=== PATIENT | female | born 1995 | race Caucasian/White ===

== ENCOUNTER 2020-08-14 02:24 | Emergency (ER) | payer OTHER ==
[~2020-08-14] VITALS: Ht 160 cm; Wt 107.9 kg
[2020-08-14 03:27] VITALS: BP 161/100
[2020-08-14] MEDS ORDERED: LIDOCAINE 1% MDV 20ML VIAL INFIL PRN (03:40)
[2020-08-14] MEDS ORDERED: OXYTOCIN DRIP 30 UNITS in IV 1 EA IV PRN (03:40)
[2020-08-14] MEDS ORDERED: PRENTAB9 PO (08:23)
--- NOTE | 2020-08-15 10:55 | ECGEPIP ---
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
== END 2020-08-14 03:27 | disposition admitted as inpatient to this hospital (09) ==
LOC: M ED 02:24
DX: O26.893 Other specified pregnancy related conditions, third trimester (principal); O99.513 Diseases of the respiratory system complicating pregnancy, third trimester; Z3A.39 39 weeks gestation of pregnancy; Z79.899 Other long term (current) drug therapy; Z91.018 Allergy to other foods

== ENCOUNTER 2020-08-14 03:34 | Inpatient (IN) | payer OTHER ==
[2020-08-14] VITALS (77 sets, daily range): BP systolic 96–184; BP diastolic 55–98
[~2020-08-14] VITALS: Ht 160 cm; Wt 107.2 kg
[2020-08-14] MEDS ORDERED: GI COCKTAIL 50ML BTL(HYOSCYAMINE/MAALOX/LIDOCAINE VISCOUS)(1:3:1) PO ONE (04:05)
--- NOTE | 2020-08-14 04:18 | IPNPDOC ---
Obstetrical Progress Note Date of Service Aug 14, 2020 AUDREY HENRY DO Aug 14, 2020 04:18
[2020-08-14 04:56] LABS: HEMATOCRIT 41.2 % (36.0-47.0); HEMOGLOBIN 13.7 g/dl (12.0-15.5); MEAN CORPUSCULAR HEMOGLOBIN 29.9 pg (27.0-33.0); MEAN CORPUSCULAR HGB CONC 33.3 g/dl (32.0-36.5); PLATELET COUNT, AUTOMATED 233 10^3/uL (150-450); RED BLOOD COUNT 4.58 10^6/uL (4.00-5.40)
[2020-08-14 05:26] LABS: ALBUMIN 2.8 GM/DL (3.2-5.2); ALT/SGPT 116 U/L (12-78); BILIRUBIN,TOTAL 0.3 MG/DL (0.2-1.0); BLOOD UREA NITROGEN 10 MG/DL (7-18); CALCIUM LEVEL 8.8 MG/DL (8.5-10.1); CARBON DIOXIDE LEVEL 25 MEQ/L (21-32); CHLORIDE LEVEL 109 MEQ/L (98-107); CREATININE FOR GFR 0.74 MG/DL (0.55-1.30); GLOMERULAR FILTRATION RATE > 60.0 (>60); GLUCOSE, FASTING 96 MG/DL (70-100); LDH LACTATE DEHYDROGENASE 393 U/L (84-246); NT-PRO BNP 10 PG/ML (<125); POTASSIUM SERUM 4.4 MEQ/L (3.5-5.1); SODIUM LEVEL 141 MEQ/L (136-145); TOTAL PROTEIN 6.8 GM/DL (6.4-8.2); TROPONIN I < 0.02 NG/ML (< 0.10)
[2020-08-14 06:31] LABS: AMPHETAMINES URINE REFLEX NEGATIVE (NEGATIVE); BARBITURATES URINE REFLEX NEGATIVE (NEGATIVE); BENZODIAZEPINES URINE REFLEX NEGATIVE (NEGATIVE); CANNABINOIDS URINE REFLEX NEGATIVE (NEGATIVE); COCAINE METABOLITE URINE REFLE NEGATIVE (NEGATIVE); METHADONE URINE REFLEX NEGATIVE (NEGATIVE); OPIATES URINE REFLEX NEGATIVE (NEGATIVE); PHENCYCLIDINE URINE REFLEX NEGATIVE (NEGATIVE)
[2020-08-14] MEDS ORDERED: OXYTOCIN INJ 10 UNITS/ML VIAL (J2590) IV PRN (07:20)
[2020-08-14] MEDS ORDERED: MAG Sulf (L&D) 4 GM/100 ML 4 GM in IV 1 EA IV ONE (07:20)
[2020-08-14] MEDS ORDERED: LIDOCAINE 1% MDV 20ML VIAL INFIL PRN ×2 (07:20→21:30)
[2020-08-14] MEDS ORDERED: CALCIUM GLUCONATE 1,000 MG in D5W MINI-BAG PLUS 100 ML IV PRN (07:20)
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
[2020-08-14] MEDS ORDERED: PRENTAB9 PO (08:23)
[2020-08-14] MEDS: LR 1,000 ML IV SCH ×2 (09:24→15:22)
[2020-08-14] MEDS: MAG Sulf (OBGYN) 20GM/500ML 20,000 MG in IV 1 EA IV SCH ×2 (09:58→19:44)
--- NOTE | 2020-08-14 11:15 | IPNPDOC ---
Obstetrical Progress Note Date of Service Aug 14, 2020 Subjective 25 yo at 39w2d admitted for pre-eclampsia with severe features. She denies headache, chest pain, RUQ pain, and visual changes. She has no additional complaints at this time. Discussed plan of care for IOL, pre-eclampsia, and plan to start magnesium sulfate IV. We also discussed pain management options. All questions were answered. Objective Vital Signs Date Time Temp Pulse Resp B/P (MAP) Pulse Ox O2 Delivery O2 Flow Rate FiO2 08/14/20 10:00 83 18 132/60 (84) 98 Room Air 08/14/20 08:20 97.0 Cook catheter balloon was placed at 1052 with 80/80 infused into the vaginal and uterine balloons. 16F indwelling urinary tanner catheter was placed. Patient tolerated the procedure well. Assessment Heart Rate (FHR): 135 Variability: Moderate Accelerations: Present Decelerations: None Tocometer Contractions: Yes Frequency: regular (every 3-4 minutes) Sterile Vaginal Examination Dilation: 1cm Effacement (%): 50% Station: -3 Cervical Consistency: Firm Cervical Position: Posterior Postion/Presentation: Cephalic presentation Assessment and Plan Age: 25 : 1 Term: 0 Pre-term: 0 Abortions: 0 Livin EGA at Admission: 39 (+2) Weeks & Days 39w2d Status: Reassuring Group B Streptococcus: Negative Anticipate: Vaginal Delivery Additional Comments Plan to re-evaluate EFM in 2 hours and will consider adding cytotec vs pitocin Repeat PIH labs at 1400 PRINCESS DAILEY CNM Aug 14, 2020 11:15
[2020-08-14] MEDS ORDERED: miSOPROStol 50MCG 1/2 TABLET PO PRN (11:45)
[2020-08-14] MEDS ORDERED: BUTORPHANOL 2 MG/ML INJ (J0595) IV ONE (13:00)
[2020-08-14] MEDS ORDERED: PROMETHAZINE INJ 25 MG/ML VIAL (J2550) IV ONE (13:00)
[2020-08-14 14:33] LABS: HEMATOCRIT 36.8 % (36.0-47.0); HEMOGLOBIN 12.5 g/dl (12.0-15.5); MEAN CORPUSCULAR HEMOGLOBIN 30.1 pg (27.0-33.0); MEAN CORPUSCULAR VOLUME 88.7 fl (80.0-96.0); RED BLOOD COUNT 4.15 10^6/uL (4.00-5.40); WHITE BLOOD COUNT 15.7 10^3/uL (4.0-10.0)
[2020-08-14 14:36] LABS: PLATELET COUNT, AUTOMATED 113 10^3/uL (150-450)
[2020-08-14 15:04] LABS: ALT/SGPT 194 U/L (12-78); BILIRUBIN,TOTAL 0.8 MG/DL (0.2-1.0); CREATININE FOR GFR 0.56 MG/DL (0.55-1.30); GLOMERULAR FILTRATION RATE > 60.0 (>60); LDH LACTATE DEHYDROGENASE 691 U/L (84-246); URIC ACID 7.4 MG/DL (2.6-6.0)
[2020-08-14] MEDS ORDERED: FENTANYL 2MCG/ML ROPIVACAINE 0.2% IN 0.9% NACL 100ML IVBAG As Ordered ONE (15:20)
[2020-08-14] MEDS ORDERED: ePHEDrine SULFATE 25 MG/5 ML(5MG/ML) SYRINGE IV PRN (15:25)
[2020-08-14] MEDS ORDERED: OXYTOCIN DRIP 30 UNITS in IV 1 EA IV SCH ×3 (15:25→23:45)
[2020-08-14] MEDS ORDERED: TRANEXAMIC ACID INJection 1,000 MG in NS 100 ML IV PRN (15:25)
[2020-08-14] MEDS ORDERED: LACTATED RINGER'S 1000 ML IV PRN (15:25)
[2020-08-14] MEDS ORDERED: ONDANSETRON 4MG/2ML VIAL IV PRN ×2 (15:25→22:30)
[2020-08-14] MEDS ORDERED: diphenhydrAMINE 50MG/ML VIAL (J1200) IV PRN ×2 (15:25→22:30)
[2020-08-14] MEDS ORDERED: REFRIGERATOR IV KEYS XX PRN (15:25)
[2020-08-14] MEDS ORDERED: FENTANYL/ROPIVACAINE/NACL BAG 100 ML EPIDURAL SCH (15:25)
[2020-08-14] MEDS ORDERED: NALOXONE INJ 0.4MG/1ML VIAL (J2310 PER 1MG) IV PRN ×3 (15:25→22:30)
[2020-08-14] MEDS ORDERED: EPIDURAL/PCA KEYS XX PRN (15:25)
[2020-08-14] MEDS ORDERED: EPIDURAL COMMENT XX SCH (15:25)
[2020-08-14] MEDS ORDERED: METHYLERGONOVINE MALEATE 0.2 MG/ML VIAL (J2210) IM PRN ×2 (15:25→21:30)
--- NOTE | 2020-08-14 15:38 | IPNPDOC ---
Obstetrical Progress Note Date of Service Aug 14, 2020 Subjective 25 yo at 39w2d admitted for pre-eclampsia with severe features which has now developed into HELLP syndrome. She denies headache, chest pain, RUQ pain, and visual changes. Discussed patient status and reviewed labs with Dr. Wayne, who agrees with having anesthesia place epidural now, as platelets are currently 113 from 233 since this morning. Her LFTs have increased: AST: 154 to 289, ALT: 116 to 194, and LDH: 393 to 691. Cook balloon has been expelled spontaneously and she has SROM'd for clear fluid. Objective Vital Signs Date Time Temp Pulse Resp B/P (MAP) Pulse Ox O2 Delivery O2 Flow Rate FiO2 08/14/20 15:19 97.6 89 18 134/61 (85) Room Air 08/14/20 11:03 98 Assessment Heart Rate (FHR): 125 Variability: Moderate Accelerations: Present Decelerations: None Tocometer Contractions: Yes Frequency: other (every 2-3 minutes) Sterile Vaginal Examination Dilation: 6 cm Effacement (%): 60% Station: -3 Cervical Consistency: Soft Cervical Position: Posterior Postion/Presentation: Cephalic presentation Assessment and Plan Age: 25 : 1 Term: 0 Pre-term: 0 Abortions: 0 Livin EGA at Admission: 39 (+2) Weeks & Days 39w2d Status: Reassuring Group B Streptococcus: Negative Anticipate: Vaginal Delivery PRINCESS DAILEY CNM Aug 14, 2020 15:24
--- NOTE | 2020-08-14 18:56 | IPNPDOC ---
Text Note Date of Service The patient was seen on 08/14/20. NOTE Vital Signs Label Value Date Time Pulse 107 08/14/20 1601 Blood Pressure Assessment 100/61 (74) 08/14/20 1601 Source Automatic Cuff (NIBP) Pulse 106 08/14/20 1606 Blood Pressure Assessment 157/73 (101) 08/14/20 1606 Source Automatic Cuff (NIBP) Pulse 118 08/14/20 1611 Blood Pressure Assessment 165/74 (104) 08/14/20 1611 Source Automatic Cuff (NIBP) Pulse 109 08/14/20 1621 Blood Pressure Assessment 136/69 (91) 08/14/20 1621 Source Automatic Cuff (NIBP) Pulse 114 08/14/20 1627 Blood Pressure Assessment 151/82 (105) 08/14/20 1627 Source Automatic Cuff (NIBP) Pulse 111 08/14/20 1633 Blood Pressure Assessment 132/77 (95) 08/14/20 1633 Source Automatic Cuff (NIBP) Pulse 116 08/14/20 1637 Pulse 117 08/14/20 1642 Pulse 120 08/14/20 1653 Pulse 106 08/14/20 1647 Blood Pressure Assessment 138/72 (94) 08/14/20 1647 Source Automatic Cuff (NIBP) Blood Pressure Assessment 134/78 (96) 08/14/20 1642 Source Automatic Cuff (NIBP) Blood Pressure Assessment 130/93 (105) 08/14/20 1637 Source Automatic Cuff (NIBP) Blood Pressure Assessment 184/77 (112) 08/14/20 1653 Source Automatic Cuff (NIBP) Blood Pressure Assessment 164/81 (108) 08/14/20 1657 Source Automatic Cuff (NIBP) Pulse 121 08/14/20 1657 Pulse 109 08/14/20 1702 Respiratory Rate 20 bpm 08/14/20 1702 Blood Pressure Assessment 170/90 (116) 08/14/20 1702 Source Automatic Cuff (NIBP) Pulse 99 08/14/20 1713 Blood Pressure Assessment 123/68 (86) 08/14/20 1713 Source Automatic Cuff (NIBP) Blood Pressure Assessment 131/60 (83) 08/14/20 1718 Source Automatic Cuff (NIBP) Pulse 104 08/14/20 1718 Pulse 101 08/14/20 1721 Blood Pressure Assessment 121/59 (79) 08/14/20 1721 Source Automatic Cuff (NIBP) Pulse 96 08/14/20 1726 Blood Pressure Assessment 124/58 (80) 08/14/20 1726 Source Automatic Cuff (NIBP) Pulse 96 08/14/20 1731 Blood Pressure Assessment 121/57 (78) 08/14/20 1731 Source Automatic Cuff (NIBP) Pulse 96 08/14/20 1736 Respiratory Rate 16 bpm 08/14/20 1736 Blood Pressure Assessment 120/56 (77) 08/14/20 1736 Source Automatic Cuff (NIBP) Item Value Date Time Urine Random Creatinine 288.0 MG/DL 08/14/20 0556 Urine Random Total Protein 54.0 MG/DL H 08/14/20 0556 Item Value Date Time Sodium Level 141 MEQ/L 08/14/20 0442 Potassium Level 4.4 MEQ/L 08/14/20 0442 Chloride Level 109 MEQ/L H 08/14/20 0442 Carbon Dioxide Level 25 MEQ/L 08/14/20 0442 Anion Gap 7 MEQ/L L 08/14/20 0442 Blood Urea Nitrogen 10 MG/DL 08/14/20 0442 Creatinine 0.74 MG/DL 08/14/20 0442 Glomerular Filtration Rate > 60.0 08/14/20 0442 Fasting Glucose 96 MG/DL 08/14/20 0442 Uric Acid 7.0 MG/DL H 08/14/20 0442 Calcium Level 8.8 MG/DL 08/14/20 0442 Total Bilirubin 0.3 MG/DL 08/14/20 0442 Aspartate Amino Transf (AST/SGOT) 154 U/L H 08/14/20 0442 Alanine Aminotransferase (ALT/SGPT) 116 U/L H 08/14/20 0442 Alkaline Phosphatase 322 U/L H 08/14/20 0442 Lactate Dehydrogenase 393 U/L H 08/14/20 0442 Troponin I < 0.02 NG/ML 08/14/20 0442 TQ-Odq-H-Type Natriuretic Peptide 10 PG/ML 08/14/20 0442 Total Protein 6.8 GM/DL 08/14/20 0442 Albumin 2.8 GM/DL L 08/14/20 0442 Albumin/Globulin Ratio 0.7 L 08/14/20 0442 Thyroid Stimulating Hormone (TSH) 2.130 uIU/ML 08/14/20 0442 Creatinine 0.56 MG/DL 08/14/20 1422 Glomerular Filtration Rate > 60.0 08/14/20 1422 Uric Acid 7.4 MG/DL H 08/14/20 1422 Aspartate Amino Transf (AST/SGOT) 289 U/L H 08/14/20 1422 Alanine Aminotransferase (ALT/SGPT) 194 U/L H 08/14/20 1422 Lactate Dehydrogenase 691 U/L H 08/14/20 1422 Item Value Date Time White Blood Count 16.0 10^3/uL H 08/14/20 0442 Red Blood Count 4.58 10^6/uL 08/14/20 0442 Hemoglobin 13.7 g/dl 08/14/20 0442 Hematocrit 41.2 % 08/14/20 0442 Mean Corpuscular Volume 90.0 fl 08/14/20 0442 Mean Corpuscular Hemoglobin 29.9 pg 08/14/20 0442 Mean Corpuscular Hemoglobin Concent 33.3 g/dl 08/14/20 0442 Red Cell Distribution Width 14.2 % 08/14/20 0442 Platelet Count 233 10^3/uL 08/14/20 0442 White Blood Count 15.7 10^3/uL H 08/14/20 1422 Red Blood Count 4.15 10^6/uL 08/14/20 1422 Hemoglobin 12.5 g/dl 08/14/20 1422 Hematocrit 36.8 % 08/14/20 1422 Mean Corpuscular Volume 88.7 fl 08/14/20 1422 Mean Corpuscular Hemoglobin 30.1 pg 08/14/20 1422 Mean Corpuscular Hemoglobin Concent 34.0 g/dl 08/14/20 1422 Red Cell Distribution Width 14.3 % 08/14/20 1422 Platelet Count 113 10^3/uL L # 08/14/20 1422 08/14/2020 1600 pm REVIEW AND TAKE OVER CARE. OF PATIENT. 25 YO CAME TO ED FOR CHEST PAIN. EKG NORMAL. REVIEW WITH PATIENT WAS IN FACT EPIGASTRIC IN NATURE PATIENT HAS HISTORY OF GERD TAKES TUMS. PATIENT EVALUATED IN LABOR AT 39.2 WEE KS HAD ELEVATED LIVER ENZYMES BP 143/97 CATEGORY 1 STRIP BPP 8/8 PATIENT LIVER FUNCTIONS DOUBLED AND PLATELETS REDUCED BY 50%. DIAGNOSIS OF HELLP SYNDROME ATYPICAL. PLAN REVIEWED HELLP WITH PATIENT AND WITH DIFFERENTIAL DIAGNOSIS HYPERTENSIVE WITH PRE -E THROMBOCYTOPENIA ACUTE FATTY LIVER ACUTE KIDNEY DISEASE DIAGNOSIS ATYPICAL HELLP NO SEVERE BLOOD PRESSURES EDEMA +3 TO KNEES NORMAL REFLEXES NO RUQ PAIN NO PRE E SYMPTOMS. PLAN IOL ANTICIPATE OPTIMIZE FOR VAGINAL DELIVERY MONITOR FOR DIC PLANNED HEMORRHAGE CART IV PITOCIN METHERGINE CYTOTEC 1000MG TXA REVIEW AND MONITOR ENZYMES ALT AST ALK PHOPOTASE BILIRUBIN PT/PTT FIBRINOGEN FOR DIC TREAT CAUSE DELIVERY OPTIMUM VAGINAL, BLOOD PRODUCTS PPC, FFP, CPP TARGET 7 GM HG PTL 50,000 FIBRGEN 300 PT/PTT <1.5 SEC POST 24-72 HOURS PLATELETS INCREASE LIVER ENZYMES DECREASE DIURESIS THEREFORE GETTING BETTER . 1 HOUR WITH PATIENT VS,Fishbone, I+O VS, Fishbone, I+O Laboratory Tests 08/14/20 04:42 08/14/20 14:22 Vital Signs Date Time Temp Pulse Resp B/P (MAP) Pulse Ox O2 Delivery O2 Flow Rate FiO2 08/14/20 17:51 98.1 100 18 126/58 (80) 99 Room Air Jayy Wayne MD Aug 14, 2020 18:34
[2020-08-14] MEDS ORDERED: ACETAMINOPHEN 500 MG TAB PO ONE (19:25)
[2020-08-14 20:55] LABS: HEMATOCRIT 36.9 % (36.0-47.0); HEMOGLOBIN 12.4 g/dl (12.0-15.5); MEAN CORPUSCULAR HEMOGLOBIN 30.3 pg (27.0-33.0); MEAN CORPUSCULAR HGB CONC 33.6 g/dl (32.0-36.5); MEAN CORPUSCULAR VOLUME 90.2 fl (80.0-96.0); PLATELET COUNT, AUTOMATED 106 10^3/uL (150-450); RED BLOOD COUNT 4.09 10^6/uL (4.00-5.40); WHITE BLOOD COUNT 16.3 10^3/uL (4.0-10.0)
[2020-08-14 21:05] LABS: ALBUMIN 2.5 GM/DL (3.2-5.2); ALT/SGPT 158 U/L (12-78); BILIRUBIN,TOTAL 0.7 MG/DL (0.2-1.0); BLOOD UREA NITROGEN 9 MG/DL (7-18); CALCIUM LEVEL 6.8 MG/DL (8.5-10.1); CARBON DIOXIDE LEVEL 24 MEQ/L (21-32); CHLORIDE LEVEL 106 MEQ/L (98-107); CREATININE FOR GFR 0.66 MG/DL (0.55-1.30); GLOMERULAR FILTRATION RATE > 60.0 (>60); GLUCOSE, FASTING 93 MG/DL (70-100); MAGNESIUM LEVEL 5.9 MG/DL (1.8-2.4); SODIUM LEVEL 138 MEQ/L (136-145); TOTAL PROTEIN 5.7 GM/DL (6.4-8.2)
[2020-08-14 21:13] LABS: INR 0.93; PROTHROMBIN TIME 12.7 SECONDS (12.5-14.3)
[2020-08-14 21:14] LABS: PARTIAL THROMBOPLASTIN TIME 26.4 SECONDS (24.2-38.5)
[2020-08-14] MEDS ORDERED: LR 1,000 ML IV SCH (21:30)
[2020-08-14] MEDS ORDERED: BICITRA 30ML SOLN UDC PO ONE (21:30)
[2020-08-14] MEDS ORDERED: ACETAMINOPHEN 650 MG SUPP PR SCH (21:30)
[2020-08-14] MEDS ORDERED: ceFAZolin SOD 2 GM in IV 1 EA IV ONE (21:30)
[2020-08-14] MEDS ORDERED: AZITHROMYCIN INJ 500 MG, VIAL MATE ADAPTER 1 EACH in NS 250 ML IV ONE (21:30)
[2020-08-14] MEDS ORDERED: ceFAZolin 2 GM/D5W 50 ML IV BAG (J0690 PER 500MG) As Ordered ONE (21:31)
[2020-08-14] MEDS ORDERED: AZITHROMYCIN INJ 500MG VIAL (J0456 PER 500MG) As Ordered ONE (21:32)
[2020-08-14] MEDS ORDERED: BUPIVACAINE HCL 0.25% 30ML VIAL As Ordered ONE (21:37)
[2020-08-14] MEDS ORDERED: MORPHINE PRES-FREE INJ 10 MG/10 ML VIAL (J2274) As Ordered ONE (21:39)
[2020-08-14] MEDS ORDERED: LIDOCAINE 2% W/EPINEPHRINE 20ML VIAL **PRES FREE As Ordered ONE (21:40)
[2020-08-14] MEDS ORDERED: ONDANSETRON 4MG/2ML VIAL As Ordered ONE (21:40)
[2020-08-14] MEDS ORDERED: BUPIVACAINE HCL 0.25% 10ML VIAL As Ordered ONE (21:41)
[2020-08-14] MEDS ORDERED: OXYTOCIN 30 UNITS IN 0.9% NaCl 500ML IV BAG (J2590) As Ordered ONE (21:42)
[2020-08-14] MEDS ORDERED: METOCLOPRAMIDE INJ 10MG/2ML VIAL (J2765 PER 1) As Ordered ONE (22:20)
[2020-08-14] MEDS ORDERED: NALBUPHINE HCL 10 MG/ML AMP (J2300) IV PRN (22:30)
[2020-08-14] MEDS ORDERED: METOCLOPRAMIDE INJ 10MG/2ML VIAL (J2765 PER 1) IV PRN (22:30)
[2020-08-14 22:39] LABS: CORD GAS ABE A -1.5; CORD GAS HCO3 A 26.7 MEQ/L; CORD GAS HCO3 V 23.9 MEQ/L; CORD GAS O2 SAT A 23.4 %; CORD GAS O2 SAT V 53.3 %; CORD GAS PCO2 A 57.9 mmHg; CORD GAS PCO2 V 44.3 mmHg; CORD GAS PH A 7.281 UNITS; CORD GAS PH V 7.349 UNITS; CORD GAS PO2 A 13.7 mmHg; CORD GAS PO2 V 22.6 mmHg; CORD GAS SBC A 21.1 MEQ/L; CORD GAS SBC V 21.6 MEQ/L; CORD GAS TCO2 A 28.4 MEQ/L; CORD GAS TCO2 V 25.2 MEQ/L
[2020-08-14 22:57] LABS: LDH LACTATE DEHYDROGENASE 538 U/L (84-246)
[2020-08-14] MEDS ORDERED: METHYLERGONOVINE MALEATE 0.2 MG TAB PO PRN (23:45)
[2020-08-14] MEDS ORDERED: SIMETHICONE 80MG CHEW TAB PO PRN (23:45)
[2020-08-14] MEDS ORDERED: RHOGAM 300 MCG (1500 IU) INJ (J2790) IM SCH (23:45)
[2020-08-14] MEDS ORDERED: DOCUSATE SODIUM 100MG CAPSULE PO PRN (23:45)
[2020-08-14] MEDS ORDERED: MEASLES,MUMPS,RUBELLA VACCINE INJ (MMR-II) (90707) SC SCH (23:45)
[2020-08-14] MEDS ORDERED: MOM 30ML SUSPENSION UDC PO PRN (23:45)
[2020-08-14] MEDS ORDERED: ANUSOL HC CREAM 30GM TOP PRN (23:45)
[2020-08-14] MEDS ORDERED: PERCOCET 5MG/325MG TAB PO PRN ×2 (23:45)
[2020-08-15] VITALS (26 sets, daily range): BP systolic 111–142; BP diastolic 55–87
[2020-08-15] MEDS ORDERED: MEPERIDINE INJ 25 MG/ML VIAL (J2175) IV PRN (00:05)
[2020-08-15] MEDS ORDERED: oxyCODONE 5MG TAB PO PRN ×2 (00:05→13:15)
[2020-08-15] MEDS ORDERED: fentaNYL 100 MCG/2 ML INJECTION (J3010) IV PRN (00:05)
[2020-08-15] MEDS ORDERED: ONDANSETRON 4MG/2ML VIAL IV PRN (00:05)
[2020-08-15] MEDS ORDERED: diphenhydrAMINE 50MG/ML VIAL (J1200) IV PRN (00:05)
[2020-08-15] MEDS: MAG Sulf (OBGYN) 20GM/500ML 20,000 MG in IV 1 EA IV SCH ×3 (01:01→18:52)
[2020-08-15] MEDS ORDERED: BUPIVACAINE HCL 0.25% 10ML VIAL SC ONE (01:20)
[2020-08-15 02:38] LABS: HEMATOCRIT 33.8 % (36.0-47.0); HEMOGLOBIN 11.5 g/dl (12.0-15.5); MEAN CORPUSCULAR HEMOGLOBIN 30.3 pg (27.0-33.0); MEAN CORPUSCULAR VOLUME 89.2 fl (80.0-96.0); PLATELET COUNT, AUTOMATED 107 10^3/uL (150-450); RED BLOOD COUNT 3.79 10^6/uL (4.00-5.40); WHITE BLOOD COUNT 17.9 10^3/uL (4.0-10.0)
[2020-08-15] MEDS: LR 1,000 ML IV SCH ×2 (02:41→15:26)
[2020-08-15 03:20] LABS: ALBUMIN 2.3 GM/DL (3.2-5.2); ALT/SGPT 130 U/L (12-78); BILIRUBIN,TOTAL 0.4 MG/DL (0.2-1.0); BLOOD UREA NITROGEN 7 MG/DL (7-18); CALCIUM LEVEL 6.6 MG/DL (8.5-10.1); CARBON DIOXIDE LEVEL 23 MEQ/L (21-32); CHLORIDE LEVEL 109 MEQ/L (98-107); GLOMERULAR FILTRATION RATE > 60.0 (>60); GLUCOSE, FASTING 100 MG/DL (70-100); LDH LACTATE DEHYDROGENASE 522 U/L (84-246); MAGNESIUM LEVEL 4.2 MG/DL (1.8-2.4); POTASSIUM SERUM 3.9 MEQ/L (3.5-5.1); SODIUM LEVEL 141 MEQ/L (136-145); TOTAL PROTEIN 5.4 GM/DL (6.4-8.2)
--- NOTE | 2020-08-15 06:37 | IPNPDOC ---
Text Note Date of Service The patient was seen on 08/15/20. NOTE Item Value Date Time White Blood Count 17.9 10^3/uL H 08/15/20 0232 Red Blood Count 3.79 10^6/uL L 08/15/20 0232 Hemoglobin 11.5 g/dl L 08/15/20 0232 Hematocrit 33.8 % L 08/15/20 0232 Mean Corpuscular Volume 89.2 fl 08/15/20 0232 Mean Corpuscular Hemoglobin 30.3 pg 08/15/20 0232 Mean Corpuscular Hemoglobin Concent 34.0 g/dl 08/15/20 0232 Platelet Count 106 10^3/uL L 08/14/20 2019 Red Cell Distribution Width 14.5 % 08/14/20 2019 Mean Corpuscular Hemoglobin Concent 33.6 g/dl 08/14/20 2019 Mean Corpuscular Hemoglobin 30.3 pg 08/14/20 2019 Hematocrit 36.9 % 08/14/20 2019 Mean Corpuscular Volume 90.2 fl 08/14/20 2019 Hemoglobin 12.4 g/dl 08/14/20 2019 Red Blood Count 4.09 10^6/uL 08/14/20 2019 Red Blood Count 4.15 10^6/uL 08/14/20 1422 Hemoglobin 12.5 g/dl 08/14/20 1422 Hematocrit 36.8 % 08/14/20 1422 Mean Corpuscular Volume 88.7 fl 08/14/20 1422 Mean Corpuscular Hemoglobin 30.1 pg 08/14/20 1422 Mean Corpuscular Hemoglobin Concent 34.0 g/dl 08/14/20 1422 Red Cell Distribution Width 14.3 % 08/14/20 1422 Platelet Count 113 10^3/uL L # 08/14/20 1422 Platelet Count 233 10^3/uL 08/14/20 0442 Red Cell Distribution Width 14.2 % 08/14/20 0442 Mean Corpuscular Hemoglobin Concent 33.3 g/dl 08/14/20 0442 Mean Corpuscular Hemoglobin 29.9 pg 08/14/20 0442 Mean Corpuscular Volume 90.0 fl 08/14/20 0442 Hematocrit 41.2 % 08/14/20 0442 Hemoglobin 13.7 g/dl 08/14/20 0442 Red Blood Count 4.58 10^6/uL 08/14/20 0442 Item Value Date Time Sodium Level 141 MEQ/L 08/15/20 0232 Chloride Level 109 MEQ/L H 08/15/20 0232 Potassium Level 3.9 MEQ/L 08/15/20 0232 Carbon Dioxide Level 23 MEQ/L 08/15/20 0232 Anion Gap 9 MEQ/L 08/15/20 0232 Blood Urea Nitrogen 7 MG/DL 08/15/20 0232 Creatinine 0.60 MG/DL 08/15/20 0232 Glomerular Filtration Rate > 60.0 08/15/20 0232 Fasting Glucose 100 MG/DL 08/15/20 0232 Calcium Level 6.6 MG/DL L 08/15/20 0232 Magnesium Level 4.2 MG/DL H 08/15/20 0232 Total Bilirubin 0.4 MG/DL 08/15/20 0232 Aspartate Amino Transf (AST/SGOT) 113 U/L H 08/15/20 0232 Alanine Aminotransferase (ALT/SGPT) 130 U/L H 08/15/20 0232 Lactate Dehydrogenase 522 U/L H 08/15/20 0232 Alkaline Phosphatase 266 U/L H 08/15/20 0232 Total Protein 5.4 GM/DL L 08/15/20 0232 Albumin 2.3 GM/DL L 08/15/20 0232 Albumin/Globulin Ratio 0.7 L 08/15/20 0232 Albumin/Globulin Ratio 0.8 L 08/14/20 2019 Albumin 2.5 GM/DL L 08/14/20 2019 Total Protein 5.7 GM/DL L 08/14/20 2019 Lactate Dehydrogenase 538 U/L H 08/14/20 2019 Alkaline Phosphatase 286 U/L H 08/14/20 2019 Alanine Aminotransferase (ALT/SGPT) 158 U/L H 08/14/20 2019 Aspartate Amino Transf (AST/SGOT) 191 U/L H 08/14/20 2019 Magnesium Level 5.9 MG/DL *H 08/14/20 2019 Calcium Level 6.8 MG/DL L # 08/14/20 2019 Total Bilirubin 0.7 MG/DL 08/14/20 2019 Fasting Glucose 93 MG/DL 08/14/20 2019 Glomerular Filtration Rate > 60.0 08/14/20 2019 Creatinine 0.66 MG/DL 08/14/202018 Blood Urea Nitrogen 9 MG/DL 08/14/202018 Anion Gap 8 MEQ/L 08/14/202018 Carbon Dioxide Level 24 MEQ/L 08/14/202018 Chloride Level 106 MEQ/L 08/14/202018 Potassium Level 4.0 MEQ/L 08/14/202018 Sodium Level 138 MEQ/L 08/14/20 2019 Creatinine 0.56 MG/DL 08/14/20 1422 Glomerular Filtration Rate > 60.0 08/14/20 1422 Uric Acid 7.4 MG/DL H 08/14/20 1422 Total Bilirubin 0.8 MG/DL # 08/14/20 1422 Aspartate Amino Transf (AST/SGOT) 289 U/L H 08/14/20 1422 Alanine Aminotransferase (ALT/SGPT) 194 U/L H 08/14/20 1422 Lactate Dehydrogenase 691 U/L H 08/14/20 1422 Thyroid Stimulating Hormone (TSH) 2.130 uIU/ML 08/14/20 0442 Albumin/Globulin Ratio 0.7 L 08/14/20 0442 Albumin 2.8 GM/DL L 08/14/20 0442 Total Protein 6.8 GM/DL 08/14/20 0442 EQ-Gry-K-Type Natriuretic Peptide 10 PG/ML 08/14/20 0442 Troponin I < 0.02 NG/ML 08/14/20 0442 Lactate Dehydrogenase 393 U/L H 08/14/20 0442 Alkaline Phosphatase 322 U/L H 08/14/20 0442 Aspartate Amino Transf (AST/SGOT) 154 U/L H 08/14/20 0442 Alanine Aminotransferase (ALT/SGPT) 116 U/L H 08/14/20 0442 Total Bilirubin 0.3 MG/DL 08/14/20 0442 Calcium Level 8.8 MG/DL 08/14/20 0442 Uric Acid 7.0 MG/DL H 08/14/20 0442 Glomerular Filtration Rate > 60.0 08/14/20 0442 Fasting Glucose 96 MG/DL 08/14/20 0442 Creatinine 0.74 MG/DL 08/14/20 0442 Blood Urea Nitrogen 10 MG/DL 08/14/20 0442 Anion Gap 7 MEQ/L L 08/14/20 0442 Carbon Dioxide Level 25 MEQ/L 08/14/20 0442 Chloride Level 109 MEQ/L H 08/14/20 0442 Potassium Level 4.4 MEQ/L 08/14/20 0442 Sodium Level 141 MEQ/L 08/14/20 0442 0600 25 yo POST OP DAY 1 AND PP DAY 1 WITH HISTORY HELLP SYNDROME POST CS . PATIENT STABLE DIURESING 300 CC PER HOUR PLATELETS STABLE AT 107,000 LIVER ENZYMES STILL ELEVATED BUT NO INCREASE OMMGSO4 X 24 HOURS REFLEXES NORMAL ORIENTATED HEADACHE RESOLVED BREAST FEEDING WELL. PLAN MAINTAIN MGSO4 X 24 HOURS MAINTAIN LIEBERMAN X 18 HOURS REDO BLOOD WORK AT 0830 AM . ANTICIPATE SLOW RESOLUTION VS,Fishbone, I+O VS, Fishbone, I+O Laboratory Tests 08/14/20 14:22 08/14/20 20:19 08/15/20 02:32 Vital Signs Date Time Temp Pulse Resp B/P (MAP) Pulse Ox O2 Delivery O2 Flow Rate FiO2 08/15/20 06:12 98.0 88 16 124/61 (82) 100 08/15/20 01:46 Room Air I&O- Last 24 Hours up to 6 AM 08/15/20 06:00 Intake Total 3905.7 ml Output Total 3880 ml Balance 25.7 ml Jayy Wayne MD Aug 15, 2020 06:31
--- NOTE | 2020-08-15 07:47 | RO ---
OPERATIVE NOTE DATE OF OPERATION: 08/14/2020 INDICATIONS: This lady is a 1, para 0 at 39 and 2 weeks of gestation, was admitted through emergency because of chest pain which was investigated and found to be negative. She did complain of epigastric pain and is known to have GERD. She had elevated liver enzymes and based on her elevated liver enzymes and her protein creatine ratio induction of labor was recommended. She over a course of time found to have HELLP syndrome. Her liver enzymes doubled, her platelets fell 50% and she was augmented with Pitocin and on final evaluation with 12 milliunits of Pitocin the baby failed to descend, failed to dilate beyond 6 cm, was in the OP position, was optimized with her blood work regarding her HELLP syndrome and therefore primary section was performed. PREOPERATIVE DIAGNOSIS: HELLP syndrome, failure to progress, POP. POSTOPERATIVE DIAGNOSIS: HELLP syndrome, failure to progress, POP. OPERATION PROPOSED: Primary section. OPERATION PERFORMED: Primary section. SURGEON: Jayy Wayne MD SYNTHETIC PLASTERER: Dr. Pinon for extraction, retraction and visualization. ANESTHESIA: Epidural. ESTIMATED BLOOD LOSS: 400 mL. DESCRIPTION OF PROCEDURE: After adequate time out, prepped and draped in the supine position, Downing catheter in bladder draining clear urine. Acetaminophen suppository 1300 mg per rectum. Antibiotics appropriately preoperatively. Pfannenstiel incision was made 2 fingersbreadth above the symphysis pubis passing through abdominal layers. There were huge varicosities noted in the fat area, these were controlled by cautery. On opening the peritoneal cavity a thin lower uterine segment with head that was at the symphysis pubis indicating failure to descend. Low transverse into a thin lower segment, clear lochia, delivered livebirth male infant weighing 8 pounds 9 ounces, 3640 gm, Apgars of 9 and 10 at 1 and 5 minutes respectively. Arterial pH 7.28, base excess -1.5, venous pH 7.34, base excess -2.0. Placenta spontaneously delivered under Pitocin, three vessel cord, membranes and tissues intact. Uterus was swept clean. The uterus contracted well under Pitocin. The lower segment was oversewn in the usual fashion in two layers, reperitonealization was performed, with instrument and pad counts correct, both tubes and ovaries appeared to be normal. The Mobius that was previously inserted was removed. The abdomen was closed with running stitch for peritoneum, same for the fascia, interrupted for subcu and subcuticular stitch to the skin. Marcaine 0.25% 10 mL to the skin and Mepore dressing. The patient was taken to recovery in good condition.
[2020-08-15 08:34] LABS: HEMATOCRIT 32.4 % (36.0-47.0); MEAN CORPUSCULAR HEMOGLOBIN 30.1 pg (27.0-33.0); MEAN CORPUSCULAR VOLUME 88.8 fl (80.0-96.0); PLATELET COUNT, AUTOMATED 102 10^3/uL (150-450); RED BLOOD COUNT 3.65 10^6/uL (4.00-5.40); WHITE BLOOD COUNT 16.8 10^3/uL (4.0-10.0)
[2020-08-15 08:59] LABS: ALBUMIN 2.2 GM/DL (3.2-5.2); ALT/SGPT 109 U/L (12-78); BILIRUBIN,TOTAL 0.3 MG/DL (0.2-1.0); BLOOD UREA NITROGEN 6 MG/DL (7-18); CALCIUM LEVEL 6.5 MG/DL (8.5-10.1); CARBON DIOXIDE LEVEL 26 MEQ/L (21-32); CHLORIDE LEVEL 107 MEQ/L (98-107); CREATININE FOR GFR 0.59 MG/DL (0.55-1.30); GLOMERULAR FILTRATION RATE > 60.0 (>60); GLUCOSE, FASTING 111 MG/DL (70-100); LDH LACTATE DEHYDROGENASE 443 U/L (84-246); MAGNESIUM LEVEL 5.5 MG/DL (1.8-2.4); POTASSIUM SERUM 3.5 MEQ/L (3.5-5.1); SODIUM LEVEL 141 MEQ/L (136-145); TOTAL PROTEIN 5.2 GM/DL (6.4-8.2)
[2020-08-15] MEDS: PRENATAL VITAMINS CHEWABLE TABLET PO SCH (09:04)
[2020-08-15] MEDS: ACETAMINOPHEN 500 MG TAB PO PRN ×2 (13:24→22:41)
[2020-08-15] MEDS: IBUPROFEN 800 MG TAB PO PRN (18:52)
[2020-08-15 19:55] LABS: HEMATOCRIT 33.8 % (36.0-47.0); HEMOGLOBIN 11.5 g/dl (12.0-15.5); MEAN CORPUSCULAR HEMOGLOBIN 30.3 pg (27.0-33.0); MEAN CORPUSCULAR VOLUME 88.9 fl (80.0-96.0); PLATELET COUNT, AUTOMATED 139 10^3/uL (150-450); WHITE BLOOD COUNT 16.4 10^3/uL (4.0-10.0)
[2020-08-15 20:40] LABS: ALT/SGPT 91 U/L (12-78); BILIRUBIN,TOTAL 0.3 MG/DL (0.2-1.0); CREATININE FOR GFR 0.69 MG/DL (0.55-1.30); GLOMERULAR FILTRATION RATE > 60.0 (>60); LDH LACTATE DEHYDROGENASE 539 U/L (84-246)
[2020-08-16 02:00] VITALS: BP 134/62
[2020-08-16] MEDS: IBUPROFEN 800 MG TAB PO PRN ×3 (03:30→21:23)
[2020-08-16 06:00] VITALS: BP 130/74
[2020-08-16 06:54] LABS: HEMATOCRIT 36.8 % (36.0-47.0); HEMOGLOBIN 12.1 g/dl (12.0-15.5); MEAN CORPUSCULAR HEMOGLOBIN 29.7 pg (27.0-33.0); MEAN CORPUSCULAR HGB CONC 32.9 g/dl (32.0-36.5); MEAN CORPUSCULAR VOLUME 90.4 fl (80.0-96.0); PLATELET COUNT, AUTOMATED 168 10^3/uL (150-450); RED BLOOD COUNT 4.07 10^6/uL (4.00-5.40); WHITE BLOOD COUNT 19.1 10^3/uL (4.0-10.0)
[2020-08-16 07:13] LABS: ALT/SGPT 80 U/L (12-78); BILIRUBIN,TOTAL 0.3 MG/DL (0.2-1.0); CREATININE FOR GFR 0.77 MG/DL (0.55-1.30); GLOMERULAR FILTRATION RATE > 60.0 (>60); LDH LACTATE DEHYDROGENASE 610 U/L (84-246); URIC ACID 7.3 MG/DL (2.6-6.0)
--- NOTE | 2020-08-16 07:29 | IPNPDOC ---
Progress Note Date of Service: Aug 16, 2020 Progress Note Ms. Polanco is a 21 yo G1 now P1 who is POD#2 s/p uncomplicated PLTCS on the evening of 14Aug2020 for HELLP Syndrome. She has completed 24 hours of IV magnesium and was transferred to maternity yesterday evening. Lori reports feeling well this AM. She is ambulating, voiding, tolerating a regular diet, and has minimal lochia. She has some soreness at her incision but it is not severe. Pain is controlled. Vitals - VSS, afebrile, normotensive, non tachycardic General - AAOX3, sitting up in bed, NAD Abdomen - Fundus firm at U-2. No fundal tenderness. Dressing in place over incision. No strikethrough. Appropriate tenderness to palpation. Extremities - No edema UO - appropriate Labs (~0600 on 16Aug2020) CBC - 19.1>12.1/36.8<168 LDH - 610 AST/ALT - 38/80 Lori is doing well this morning. Blood work is mostly trending in the right direction. Platelets increased and LFTS downtrending. LDH remains elevated but stable. BP normal. Continue routine / postoperative care. Possible discharge home tomorrow if meeting all criteria. All patient questions answered. Jamal VS, I&O, 24H, Kim Vital Signs/I&O Vital Signs Date Time Temp Pulse Resp B/P (MAP) Pulse Ox O2 Delivery O2 Flow Rate FiO2 08/16/20 06:00 97.3 82 20 130/74 (92) 97 Room Air I&O- Last 24 Hours up to 6 AM 08/16/20 06:00 Intake Total 3746 ml Output Total 7540 ml Balance -3794 ml Laboratory Data 24H LABS Laboratory Tests 2 08/15/20 08:21: Nucleated Red Blood Cells % (auto) 0.0, Anion Gap 8, Glomerular Filtration Rate > 60.0, Calcium Level 6.5L, Magnesium Level 5.5*H, Total Bilirubin 0.3, Aspartate Amino Transf (AST/SGOT) 78H, Alanine Aminotransferase (ALT/SGPT) 109H, Alkaline Phosphatase 244H, Lactate Dehydrogenase 443H, Total Protein 5.2L, Albumin 2.2L, Albumin/Globulin Ratio 0.7L 08/15/20 19:46: Nucleated Red Blood Cells % (auto) 0.0, Glomerular Filtration Rate > 60.0, Total Bilirubin 0.3, Aspartate Amino Transf (AST/SGOT) 49H, Alanine Aminotransferase (ALT/SGPT) 91H, Lactate Dehydrogenase 539H, Uric Acid 7.0H 08/16/20 06:10: Nucleated Red Blood Cells % (auto) 0.0, Glomerular Filtration Rate > 60.0, Total Bilirubin 0.3, Aspartate Amino Transf (AST/SGOT) 38H, Alanine Aminotransferase (ALT/SGPT) 80H, Lactate Dehydrogenase 610H, Uric Acid 7.3H CBC/BMP Laboratory Tests 08/15/20 08:21 08/15/20 19:46 08/16/20 06:10 SYED REYES DO Aug 16, 2020 07:29
[2020-08-16] MEDS: PRENATAL VITAMINS CHEWABLE TABLET PO SCH (09:19)
[2020-08-16] MEDS: ACETAMINOPHEN 500 MG TAB PO PRN ×2 (09:22→16:55)
[2020-08-16 10:00] VITALS: BP 139/73
[2020-08-16 14:00] VITALS: BP 135/70
[2020-08-16 18:42] VITALS: BP 141/76
[2020-08-17] MEDS: ACETAMINOPHEN 500 MG TAB PO PRN (04:13)
[2020-08-17 06:08] VITALS: BP 140/76
[2020-08-17] MEDS ORDERED: DOK1CAP7 PO (06:50)
[2020-08-17] MEDS ORDERED: OXYC-517 PO (06:50)
[2020-08-17 07:28] LABS: HEMOGLOBIN 10.9 g/dl (12.0-15.5); MEAN CORPUSCULAR HEMOGLOBIN 30.1 pg (27.0-33.0); MEAN CORPUSCULAR VOLUME 91.2 fl (80.0-96.0); PLATELET COUNT, AUTOMATED 170 10^3/uL (150-450); RED BLOOD COUNT 3.62 10^6/uL (4.00-5.40); WHITE BLOOD COUNT 13.2 10^3/uL (4.0-10.0)
--- NOTE | 2020-08-17 07:47 | DSES ---
DISCHARGE SUMMARY DATE OF ADMISSION: 08/14/2020 DATE OF DISCHARGE: 08/17/2020 BRIEF HISTORY: This lady is a 25-year-old 1 now para 1 who was admitted at 39 and 2 weeks of gestation for induction of labor because of HELLP syndrome. She had a primary section, livebirth male infant, 8 pounds, 0 ounces, 3640 grams, Apgars of 9 and 10 at 1 and 5 minutes respectively. Arterial pH 7.28, base excess -1.5, venous pH 7.34, base excess -2.0. Over the course of the next 48 hours, subsequently her platelets rebounded to a normalized number and her liver function came down. Her final discharge hemoglobin was 12.1, hematocrit 36.8 and platelets were 168,000. She initially had a very low platelet of 102,000. In her chemistry, her liver enzymes were significantly elevated and gradually came down. They have not normalized yet but they are trending downward, therefore it is safe to allow her to go home. PHYSICAL EXAMINATION: On discharge, her blood pressure is 140/76, respirations are 18, pulse is 72, temperature is 97.4. She was never in the high range blood pressures, just mid range most of the and in her stay in the hospital. The rest of the examination was unremarkable. Normocephalic, atraumatic. Neck: Full range of motion. Pupils equal and reactive to light. Distal pulses symmetric. No evidence of DVT, PE or superficial phlebitis. Chest is clear bilaterally at the bases. No wheezes or rhonchi. No CVA tenderness. Abdomen is soft, four quadrant bowel sounds are noted. The incision is clean and dry. Bandage is intact. No rashes, lesions, or pruritus. No arthralgias or myalgias. No complaint of joint pain. No complaint of cough, wheeze, shortness of breath or dyspnea on exertion. No nausea, vomiting, diarrhea or constipation. No urgency or frequency. She is voiding well, has had a bowel movement, is passing gas, breast-feeding is going well. Reflexes are normal. Eyegrounds are clear. The edema that she had in her legs is subsequently resolving as she has had a mass diuresis. Patient is to have a one week blood pressure check and evaluation at [facility], a two week incision check, a six week check. Medications are to be picked up at [facility]. All questions were answered, a 20 minute discussion. Patient is anxious for discharge, patient is discharged improved. cc: Sandy Lim TRANSPORTATION SPECIALIST
[2020-08-17 08:01] LABS: ALBUMIN 2.2 GM/DL (3.2-5.2); ALT/SGPT 62 U/L (12-78); BILIRUBIN,TOTAL 0.3 MG/DL (0.2-1.0); BLOOD UREA NITROGEN 9 MG/DL (7-18); CALCIUM LEVEL 8.3 MG/DL (8.5-10.1); CARBON DIOXIDE LEVEL 25 MEQ/L (21-32); CHLORIDE LEVEL 109 MEQ/L (98-107); CREATININE FOR GFR 0.58 MG/DL (0.55-1.30); GLOMERULAR FILTRATION RATE > 60.0 (>60); GLUCOSE, FASTING 72 MG/DL (70-100); POTASSIUM SERUM 3.7 MEQ/L (3.5-5.1); SODIUM LEVEL 142 MEQ/L (136-145)
--- NOTE | 2020-08-17 08:36 | IPN ---
PROGRESS NOTE DATE: 08/14/2020 SUBJECTIVE: This patient requested circumcision of her male infant. After discussing risks and benefits of circumcision, the medical and non-medical indications, the penile block and aftercare, expressed an understanding of penile block, aftercare and bleeding. Signed the consent form. All questions were answered, a 20 minute discussion.
[2020-08-17] MEDS: PRENATAL VITAMINS CHEWABLE TABLET PO SCH (09:28)
[2020-08-17] MEDS: IBUPROFEN 800 MG TAB PO PRN (09:29)
== END 2020-08-17 10:45 | disposition home or self-care (01) | DRG 773 ==
LOC: M LDO 03:34 → M LDI 07:42 → M OBS 08-15 23:17
PROVIDERS: ADMIT Obstetrics & Gynecology; ATTEND Obstetrics & Gynecology
PROC: 3E0P7GC Introduction of Other Therapeutic Substance into Female Reproductive, Via Natural or Artificial Opening (ICD-10-PCS; 2020-08-14)
PROC: 10D00Z1 Extraction of Products of Conception, Low, Open Approach (ICD-10-PCS; principal; 2020-08-15)
DX: O14.24 HELLP syndrome, complicating childbirth (principal); Z3A.39 39 weeks gestation of pregnancy; O99.62 Diseases of the digestive system complicating childbirth; K21.9 Gastro-esophageal reflux disease without esophagitis; O64.0XX0 Obstructed labor due to incomplete rotation of fetal head, not applicable or unspecified; Z37.0 Single live birth

== ENCOUNTER 2020-08-27 02:46 | Emergency (ER) | payer OTHER ==
[~2020-08-27] VITALS: Ht 160 cm; Wt 95.3 kg
[2020-08-27 02:46] VITALS: BP 157/89
[~2020-08-27 02:46] MED LIST: DOK1CAP7 PO; OXYC-517 PO; PRENTAB9 PO
[2020-08-27] MEDS ORDERED: PROAAER10 PO (02:59)
[2020-08-27] MEDS ORDERED: ACET1TAB55 PO (02:59)
[2020-08-27] MEDS ORDERED: IBUP-1022 PO (02:59)
--- NOTE | 2020-08-27 21:27 | ECGEPIP ---
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
== END 2020-08-27 04:03 | disposition left against medical advice (07) ==
LOC: M ED 02:46
DX: Z53.21 Procedure and treatment not carried out due to patient leaving prior to being seen by health care provider (principal)